=== PATIENT | female | born 1980 | race Caucasian/White ===

== ENCOUNTER 2016-10-23 18:41 | Emergency (ER) | payer MEDICAID, SELFPAY ==
[~2016-10-23] VITALS: Ht 165.1 cm; Wt 86.8 kg
[2016-10-23 18:46] VITALS: BP 152/100
== END 2016-10-23 19:46 | disposition home or self-care (01) ==
LOC: ED 19:40
DX: J20.8 Acute bronchitis due to other specified organisms (principal)
CPT/HCPCS: 71020; 99284; J7512